=== PATIENT | female | born 1985 | race African-American/Black ===

== ENCOUNTER 2016-10-03 11:22 | Inpatient (IN) | payer OTHER ==
[2016-10-03 12:23] VITALS: BMI 29.4
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
[2016-10-03] MEDS ORDERED: guaiFENesin/D-METHORPHAN HB 10 ML UNIT-DOSE CUPS PO PRN (13:45)
[2016-10-03] MEDS ORDERED: MENTHOL/PHENOL 1 EACH UD MM PRN (13:45)
[2016-10-03] MEDS ORDERED: MAGNESIUM CITRATE 300 ML BOTTLE PO PRN (13:45)
[2016-10-03] MEDS ORDERED: MAG HYDROX/AL HYDROX/SIMETH 30 ML UNIT-DOSE CUP PO PRN (13:45)
[2016-10-03] MEDS ORDERED: MAGNESIUM HYDROX 2400MG/30ML ORAL SUSPENSION 30 ML CUP PO PRN (13:45)
[2016-10-03] MEDS ORDERED: ACETAMINOPHEN 325 MG TABLET (FP) PO PRN (13:45)
[2016-10-03] MEDS ORDERED: chlordiazePOXIDE HCL 25 MG CAPSULE PO PRN (13:45)
[2016-10-03] MEDS ORDERED: LOPERAMIDE HCL 2 MG CAPSULE PO PRN (13:45)
[2016-10-03] MEDS ORDERED: IBUPROFEN 400 MG TABLET (FP) PO PRN (13:45)
[2016-10-03] MEDS ORDERED: hydrOXYzine PAMOATE 50 MG CAPSULE (FP) PO PRN (13:45)
[2016-10-03] MEDS ORDERED: P-EPHED 60MG/TRIPROLIDI 2.5MG TABLET PO PRN (13:45)
[2016-10-03] MEDS ORDERED: ALBUTEROL SO4 6.7 GM HFA INHALER IH PRN (13:47)
[2016-10-03] MEDS ORDERED: chlordiazePOXIDE HCL 25 MG CAPSULE PO ONE (14:47)
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
[2016-10-03] MEDS: chlordiazePOXIDE HCL 25 MG CAPSULE PO SCH ×2 (17:25→22:27)
[2016-10-03 21:49] LABS: URINE APPEARANCE CLEAR; URINE BILIRUBIN NEGATIVE (NEGATIVE); URINE BLOOD 1+ (NEGATIVE); URINE COLOR YELLOW; URINE GLUCOSE (UA) NEGATIVE (NEGATIVE); URINE KETONE 2+ (NEGATIVE); URINE LEUK ESTERASE NEGATIVE (NEGATIVE); URINE NITRITE NEGATIVE (NEGATIVE); URINE PROTEIN 1+ (NEGATIVE); URINE UROBILINOGEN NEGATIVE E.U./dl (0.2-1.0)
[2016-10-03 21:54] LABS: URINE MUCUS MANY; URINE RBC 58 /hpf (0-3); URINE WBC 2 /hpf (3-5)
[2016-10-03] MEDS: THIAMINE HCL 100 MG TABLET (FP) PO SCH (22:27)
[2016-10-03] MEDS: QUEtiapine FUMARATE 50 MG TABLET PO SCH (22:27)
[2016-10-04] MEDS: chlordiazePOXIDE HCL 25 MG CAPSULE PO SCH ×4 (05:42→22:26)
[2016-10-04] MEDS: SERTRALINE HCL 50 MG TABLET (FP) PO SCH (10:30)
[2016-10-04] MEDS: PRENATAL VITAMINS W/ FOLIC ACID TABLET (FP) PO SCH (10:30)
[2016-10-04 11:22] LABS: ALBUMIN 3.6 g/dl (3.4-5.0); ANION GAP 11 (8-16); BILIRUBIN,TOTAL 0.3 mg/dL (0.2-1.0); CALCIUM 9.2 mg/dL (8.5-10.1); CO2 26 mmol/L (21-32); CREATININE 0.6 mg/dL (0.55-1.02); GLUCOSE,RANDOM 97 mg/dL (74-106); MCH 30.3 pg (25.7-33.7); MEAN CELL VOLUME 91.7 fl (80-96); MEAN PLT VOLUME 8.1 fl (7.5-11.1); PLATELET COUNT 250 K/MM3 (134-434); SGOT/AST 21 U/L (15-37); SGPT/ALT 21 U/L (12-78); WHITE BLOOD COUNT 5.3 K/mm3 (4.0-10.0)
[2016-10-04 11:23] LABS: ALK PHOS 62 U/L (45-117)
--- NOTE | 2016-10-04 12:05 | PN ---
[facility] CIWA - CIWA Score Nausea/Vomitin Muscle Tremors: 3 Anxiety: 3 Agitation: 2 Paroxysmal Sweats: 1-Minimal Palms Moist Orientation: 0-Oriented Tacttile Disturbances: 1-Very Mild Itch/Numbness Auditory Disturbances: 1-Very Mild Visual Disturbances: 1-Very Mild Sensitivity Headache: 2-Mild CIWA-Ar Total Score: 17 BHS Progress Note (SOAP) Subjective: ALERT,IRRITABLE,ANXIOUS,INTERRUPTED SLEEP,TREMOR Objective: 10/04/16 12:02 Vital Signs Temperature 96.9 F L 10/04/16 10:24 Pulse Rate 80 10/04/16 10:24 Respiratory Rate 20 10/04/16 10:24 Blood Pressure 115/76 10/04/16 10:24 O2 Sat by Pulse Oximetry (%) EKG NSR WITH SINUS ARRHYTHMIA NORMAL ECG Laboratory Last Values WBC 5.3 K/mm3 (4.0-10.0) 10/04/16 08:00 RBC 3.92 M/mm3 (3.60-5.2) 10/04/16 08:00 Hgb 11.9 GM/dL (10.7-15.3) 10/04/16 08:00 Hct 36.0 % (32.4-45.2) 10/04/16 08:00 MCV 91.7 fl (80-96) 10/04/16 08:00 MCHC 33.0 g/dl (32.0-36.0) 10/04/16 08:00 RDW 14.0 % (11.6-15.6) 10/04/16 08:00 Plt Count 250 K/MM3 (134-434) 10/04/16 08:00 MPV 8.1 fl (7.5-11.1) 10/04/16 08:00 Sodium 141 mmol/L (136-145) 10/04/16 08:00 Potassium 4.3 mmol/L (3.5-5.1) 10/04/16 08:00 Chloride 104 mmol/L (98-107) 10/04/16 08:00 Carbon Dioxide 26 mmol/L (21-32) 10/04/16 08:00 Anion Gap 11 (8-16) 10/04/16 08:00 BUN 10 mg/dL (7-18) 10/04/16 08:00 Creatinine 0.6 mg/dL (0.55-1.02) 10/04/16 08:00 Creat Clearance w eGFR > 60 (>60) 10/04/16 08:00 Random Glucose 97 mg/dL (74-106) 10/04/16 08:00 Calcium 9.2 mg/dL (8.5-10.1) 10/04/16 08:00 Total Bilirubin 0.3 mg/dL (0.2-1.0) 10/04/16 08:00 AST 21 U/L (15-37) 10/04/16 08:00 ALT 21 U/L (12-78) 10/04/16 08:00 Alkaline Phosphatase 62 U/L (45-117) 10/04/16 08:00 Total Protein 7.0 g/dl (6.4-8.2) 10/04/16 08:00 Albumin 3.6 g/dl (3.4-5.0) 10/04/16 08:00 Urine Color Yellow 10/03/16 21:00 Urine Appearance Clear 10/03/16 21:00 Urine pH 5.0 (5.0-8.0) 10/03/16 21:00 Ur Specific [place] 1.030 (1.001-1.035) 10/03/16 21:00 Urine Protein 1+ (NEGATIVE) H 10/03/16 21:00 Urine Glucose (UA) Negative (NEGATIVE) 10/03/16 21:00 Urine Ketones 2+ (NEGATIVE) H 10/03/16 21:00 Urine Blood 1+ (NEGATIVE) H 10/03/16 21:00 Urine Nitrite Negative (NEGATIVE) 10/03/16 21:00 Urine Bilirubin Negative (NEGATIVE) 10/03/16 21:00 Urine Urobilinogen Negative E.U./dl (0.2-1.0) 10/03/16 21:00 Ur Leukocyte Esterase Negative (NEGATIVE) 10/03/16 21:00 Urine RBC 58 /hpf (0-3) 10/03/16 21:00 Urine WBC 2 /hpf (3-5) 10/03/16 21:00 Ur Epithelial Cells Many /hpf (FEW) 10/03/16 21:00 Urine Mucus Many 10/03/16 21:00 10/04/16 12:04 LABS PENDING Assessment: 10/04/16 12:04 WITHDRAWAL SYMPTOM 10/04/16 12:04 Plan: CONTINUE DETOX,REPEAT UA
[2016-10-04] MEDS: THIAMINE HCL 100 MG TABLET (FP) PO SCH (22:26)
[2016-10-04] MEDS: diphenhydrAMINE HCL 50 MG CAPSULE PO PRN (22:26)
[2016-10-04] MEDS: QUEtiapine FUMARATE 50 MG TABLET PO SCH (22:26)
[2016-10-05 00:18] LABS: URINE APPEARANCE CLEAR; URINE BILIRUBIN NEGATIVE (NEGATIVE); URINE BLOOD NEGATIVE (NEGATIVE); URINE COLOR STRAW; URINE GLUCOSE (UA) 1+ (NEGATIVE); URINE KETONE NEGATIVE (NEGATIVE); URINE LEUK ESTERASE NEGATIVE (NEGATIVE); URINE NITRITE NEGATIVE (NEGATIVE); URINE PROTEIN NEGATIVE (NEGATIVE); URINE UROBILINOGEN NEGATIVE E.U./dl (0.2-1.0)
[2016-10-05] MEDS: chlordiazePOXIDE HCL 25 MG CAPSULE PO SCH ×2 (05:32→10:09)
[2016-10-05] MEDS: PRENATAL VITAMINS W/ FOLIC ACID TABLET (FP) PO SCH (10:09)
[2016-10-05] MEDS: SERTRALINE HCL 50 MG TABLET (FP) PO SCH (10:09)
--- NOTE | 2016-10-05 12:34 | PN ---
[facility] CIWA - CIWA Score Nausea/Vomitin Muscle Tremors: 3 Anxiety: 3 Agitation: 2 Paroxysmal Sweats: 1-Minimal Palms Moist Orientation: 0-Oriented Tacttile Disturbances: 1-Very Mild Itch/Numbness Auditory Disturbances: 1-Very Mild Visual Disturbances: 1-Very Mild Sensitivity Headache: 2-Mild CIWA-Ar Total Score: 17 BHS Progress Note (SOAP) Subjective: ALERT,IRRITABLE,ANXIOUS,INTERRUPTED SLEEP,TREMOR Objective: 10/05/16 12:33 Vital Signs Temperature 98.1 F 10/05/16 09:53 Pulse Rate 99 H 10/05/16 09:53 Respiratory Rate 20 10/05/16 09:53 Blood Pressure 114/69 10/05/16 09:53 O2 Sat by Pulse Oximetry (%) Laboratory Last Values WBC 5.3 K/mm3 (4.0-10.0) 10/04/16 08:00 RBC 3.92 M/mm3 (3.60-5.2) 10/04/16 08:00 Hgb 11.9 GM/dL (10.7-15.3) 10/04/16 08:00 Hct 36.0 % (32.4-45.2) 10/04/16 08:00 MCV 91.7 fl (80-96) 10/04/16 08:00 MCHC 33.0 g/dl (32.0-36.0) 10/04/16 08:00 RDW 14.0 % (11.6-15.6) 10/04/16 08:00 Plt Count 250 K/MM3 (134-434) 10/04/16 08:00 MPV 8.1 fl (7.5-11.1) 10/04/16 08:00 Sodium 141 mmol/L (136-145) 10/04/16 08:00 Potassium 4.3 mmol/L (3.5-5.1) 10/04/16 08:00 Chloride 104 mmol/L (98-107) 10/04/16 08:00 Carbon Dioxide 26 mmol/L (21-32) 10/04/16 08:00 Anion Gap 11 (8-16) 10/04/16 08:00 BUN 10 mg/dL (7-18) 10/04/16 08:00 Creatinine 0.6 mg/dL (0.55-1.02) 10/04/16 08:00 Creat Clearance w eGFR > 60 (>60) 10/04/16 08:00 Random Glucose 97 mg/dL (74-106) 10/04/16 08:00 Calcium 9.2 mg/dL (8.5-10.1) 10/04/16 08:00 Total Bilirubin 0.3 mg/dL (0.2-1.0) 10/04/16 08:00 AST 21 U/L (15-37) 10/04/16 08:00 ALT 21 U/L (12-78) 10/04/16 08:00 Alkaline Phosphatase 62 U/L (45-117) 10/04/16 08:00 Total Protein 7.0 g/dl (6.4-8.2) 10/04/16 08:00 Albumin 3.6 g/dl (3.4-5.0) 10/04/16 08:00 Urine Color Straw 10/04/16 23:58 Urine Appearance Clear 10/04/16 23:58 Urine pH 6.0 (5.0-8.0) 10/04/16 23:58 Ur Specific [place] 1.015 (1.001-1.035) 10/04/16 23:58 Urine Protein Negative (NEGATIVE) 10/04/16 23:58 Urine Glucose (UA) 1+ (NEGATIVE) H 10/04/16 23:58 Urine Ketones Negative (NEGATIVE) 10/04/16 23:58 Urine Blood Negative (NEGATIVE) 10/04/16 23:58 Urine Nitrite Negative (NEGATIVE) 10/04/16 23:58 Urine Bilirubin Negative (NEGATIVE) 10/04/16 23:58 Urine Urobilinogen Negative E.U./dl (0.2-1.0) 10/04/16 23:58 Ur Leukocyte Esterase Negative (NEGATIVE) 10/04/16 23:58 Urine RBC 58 /hpf (0-3) 10/03/16 21:00 Urine WBC 2 /hpf (3-5) 10/03/16 21:00 Ur Epithelial Cells Many /hpf (FEW) 10/03/16 21:00 Urine Mucus Many 10/03/16 21:00 RPR Titer Nonreactive (NONREACTIVE) 10/04/16 08:00 Assessment: 10/05/16 12:34 WITHDRAWAL SYMPTOM 10/05/16 12:35 Laboratory Results - last 24 hr 10/04/16 10/04/16 08:00 23:58 Urine Color Straw Urine Appearance Clear Urine pH 6.0 Ur Specific [place] 1.015 Urine Protein Negative Urine Glucose (UA) 1+ H Urine Ketones Negative Urine Blood Negative Urine Nitrite Negative Urine Bilirubin Negative Urine Urobilinogen Negative Ur Leukocyte Esterase Negative RPR Titer Nonreactive Plan: CONTINUE DETOX,FLUID ENCOURAGEMENT
[2016-10-05] MEDS: chlordiazePOXIDE 5 MG CAPSULE PO SCH ×2 (18:10→22:15)
[2016-10-05] MEDS: QUEtiapine FUMARATE 50 MG TABLET PO SCH (22:15)
[2016-10-05] MEDS: THIAMINE HCL 100 MG TABLET (FP) PO SCH (22:15)
[2016-10-05] MEDS: diphenhydrAMINE HCL 50 MG CAPSULE PO PRN (22:16)
[2016-10-06] MEDS: chlordiazePOXIDE 5 MG CAPSULE PO SCH ×2 (05:47→10:36)
[2016-10-06] MEDS: PRENATAL VITAMINS W/ FOLIC ACID TABLET (FP) PO SCH (10:36)
[2016-10-06] MEDS: SERTRALINE HCL 50 MG TABLET (FP) PO SCH (10:37)
--- NOTE | 2016-10-06 11:16 | PN ---
BHS Progress Note (SOAP) Subjective: interrupted sleep, sweats Objective: 10/06/16 11:14 Vital Signs Temperature 97 F L 10/06/16 10:15 Pulse Rate 79 10/06/16 10:15 Respiratory Rate 18 10/06/16 10:15 Blood Pressure 119/82 10/06/16 10:15 O2 Sat by Pulse Oximetry (%) Laboratory Tests 10/03/16 10/04/16 10/04/16 21:00 08:00 08:00 WBC 5.3 RBC 3.92 Hgb 11.9 Hct 36.0 MCV 91.7 MCHC 33.0 RDW 14.0 Plt Count 250 MPV 8.1 Sodium 141 Potassium 4.3 Chloride 104 Carbon Dioxide 26 Anion Gap 11 BUN 10 Creatinine 0.6 Creat Clearance w eGFR > 60 Random Glucose 97 Calcium 9.2 Total Bilirubin 0.3 AST 21 ALT 21 Alkaline Phosphatase 62 Total Protein 7.0 Albumin 3.6 Urine Color Yellow Urine Appearance Clear Urine pH 5.0 Ur Specific [place] 1.030 Urine Protein 1+ H Urine Glucose (UA) Negative Urine Ketones 2+ H Urine Blood 1+ H Urine Nitrite Negative Urine Bilirubin Negative Urine Urobilinogen Negative Ur Leukocyte Esterase Negative Urine RBC 58 Urine WBC 2 Ur Epithelial Cells Many Urine Mucus Many RPR Titer 10/04/16 10/04/16 08:00 23:58 WBC RBC Hgb Hct MCV MCHC RDW Plt Count MPV Sodium Potassium Chloride Carbon Dioxide Anion Gap BUN Creatinine Creat Clearance w eGFR Random Glucose Calcium Total Bilirubin AST ALT Alkaline Phosphatase Total Protein Albumin Urine Color Straw Urine Appearance Clear Urine pH 6.0 Ur Specific [place] 1.015 Urine Protein Negative Urine Glucose (UA) 1+ H Urine Ketones Negative Urine Blood Negative Urine Nitrite Negative Urine Bilirubin Negative Urine Urobilinogen Negative Ur Leukocyte Esterase Negative Urine RBC Urine WBC Ur Epithelial Cells Urine Mucus RPR Titer Nonreactive pt aox3 in nad ambulating Assessment: 10/06/16 11:15 withdrawal sx;s Plan: cont. detox increase fluids d/c in am
--- NOTE | 2016-10-06 11:32 | EKG ---
Test Reason : Blood Pressure : / mmHG Vent. Rate : 087 BPM Atrial Rate : 087 BPM P-R Int : 148 ms QRS Dur : 086 ms QT Int : 360 ms P-R-T Axes : 040 071 035 degrees QTc Int : 433 ms NORMAL SINUS RHYTHM WITH SINUS ARRHYTHMIA NORMAL ECG NO PREVIOUS ECGS AVAILABLE Confirmed by RIKY PILLAI MD ([id number]) on 10/06/2016 11:32:12 AM Referred By: Confirmed By:RIKY PILLAI MD
[2016-10-06] MEDS: chlordiazePOXIDE HCL 10 MG CAPSULE PO SCH ×2 (17:32→22:03)
[2016-10-06] MEDS: diphenhydrAMINE HCL 50 MG CAPSULE PO PRN (22:02)
[2016-10-06] MEDS: QUEtiapine FUMARATE 50 MG TABLET PO SCH (22:03)
[2016-10-06] MEDS: THIAMINE HCL 100 MG TABLET (FP) PO SCH (22:03)
[2016-10-07] MEDS: chlordiazePOXIDE HCL 10 MG CAPSULE PO SCH ×2 (05:51→10:09)
--- NOTE | 2016-10-07 08:59 | DS ---
[facility] Detox Discharge Summary Admission Date: 10/03/16 Discharge Date: 10/07/16 - History Present History: Alcohol Dependence - Physical Exam Results Vital Signs: Vital Signs Temperature 98.1 F 10/07/16 06:16 Pulse Rate 80 10/07/16 06:16 Respiratory Rate 18 10/07/16 06:16 Blood Pressure 111/58 10/07/16 06:16 O2 Sat by Pulse Oximetry (%) - Treatment Hospital Course: Detox Protocol Followed, Detoxed Safely, Responded well, Discharged Condition Good, Rehab Referral Accepted - Medication Discharge Medications: Ambulatory Orders Albuterol Sulfate Inhaler - [Ventolin Hfa Inhaler -] 2 inh PO Q4H PRN 10/03/16 Quetiapine Fumarate [Seroquel -] 50 mg PO HS #30 tablet 10/03/16 Sertraline HCl [Zoloft -] 50 mg PO DAILY #30 tablet 10/03/16 - Diagnosis (1) Alcohol dependence with uncomplicated withdrawal Current Visit: Yes Status: Chronic (2) Depression Current Visit: Yes Status: Chronic (3) Asthma Current Visit: Yes Status: Chronic Qualifiers: Asthma severity: mild intermittent Asthma complication type: uncomplicated Qualified Code(s): J45.20 - Mild intermittent asthma, uncomplicated - AMA Did Patient Leave Against Medical Advice: No
[2016-10-07 10:07] VITALS: BP 101/67; PULSE 83; TEMP 98.2
[2016-10-07] MEDS: PRENATAL VITAMINS W/ FOLIC ACID TABLET (FP) PO SCH (10:09)
[2016-10-07] MEDS: SERTRALINE HCL 50 MG TABLET (FP) PO SCH (10:09)
== END 2016-10-07 12:50 | disposition home or self-care (01) | DRG 775 ==
LOC: YASAS 11:22 → Y6N 14:20
PROVIDERS: ADMIT Internal Medicine; ATTEND Internal Medicine
PROC: HZ2ZZZZ Detoxification Services for Substance Abuse Treatment (ICD-10-PCS; principal; 2016-10-07)
DX: F10.230 Alcohol dependence with withdrawal, uncomplicated (principal); F10.24 Alcohol dependence with alcohol-induced mood disorder; F32.9 Major depressive disorder, single episode, unspecified; F43.23 Adjustment disorder with mixed anxiety and depressed mood
CPT/HCPCS: 36415; 80053; 81003; 81015; 85027; 86593; 93005; 93010

== ENCOUNTER 2016-10-07 13:04 | Inpatient (IN) | payer OTHER ==
[2016-10-07] MEDS ORDERED: LOPERAMIDE HCL 2 MG CAPSULE PO PRN (14:26)
[2016-10-07] MEDS ORDERED: IBUPROFEN 400 MG TABLET (FP) PO PRN (14:26)
[2016-10-07] MEDS ORDERED: MAGNESIUM HYDROX 2400MG/30ML ORAL SUSPENSION 30 ML CUP PO PRN (14:26)
[2016-10-07] MEDS ORDERED: guaiFENesin/D-METHORPHAN HB 10 ML UNIT-DOSE CUPS PO PRN (14:26)
[2016-10-07] MEDS ORDERED: MAGNESIUM CITRATE 300 ML BOTTLE PO PRN (14:26)
[2016-10-07] MEDS ORDERED: ACETAMINOPHEN 325 MG TABLET (FP) PO PRN (14:26)
[2016-10-07] MEDS ORDERED: P-EPHED 60MG/TRIPROLIDI 2.5MG TABLET PO PRN (14:26)
[2016-10-07] MEDS ORDERED: MENTHOL/PHENOL 1 EACH UD MM PRN (14:26)
[2016-10-07] MEDS ORDERED: MAG HYDROX/AL HYDROX/SIMETH 30 ML UNIT-DOSE CUP PO PRN (14:26)
[2016-10-07 14:27] VITALS: BMI 31.1
[2016-10-07] MEDS ORDERED: ALBUTEROL SO4 6.7 GM HFA INHALER IH PRN (14:27)
--- NOTE | 2016-10-07 14:29 | HP ---
[facility] Rehab Assess/Revision - Admission History Admitted to Rehab from: [facility] Date of Admission to Rehab: 10/07/16 - Vital signs Vital Signs: Vital Signs Period Temp Pulse Resp BP Sys/Moreno Pulse Ox Last 24 Hr 98.4 F-98.4 F 96-96 18-18 107-107/69-69 - Findings Detox History & Physical reviewed: Yes Concur with findings: Yes
[2016-10-07] MEDS: THIAMINE HCL 100 MG TABLET (FP) PO SCH (21:32)
[2016-10-07] MEDS: QUEtiapine FUMARATE 50 MG TABLET PO SCH (21:32)
[2016-10-07] MEDS: diphenhydrAMINE HCL 50 MG CAPSULE PO PRN (21:33)
[2016-10-08] MEDS ORDERED: SERTRALINE HCL 50 MG TABLET (FP) PO SCH (10:00)
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
[2016-10-08] MEDS: PRENATAL VITAMINS W/ FOLIC ACID TABLET (FP) PO SCH (11:01)
[2016-10-08] MEDS: QUEtiapine FUMARATE 50 MG TABLET PO SCH (21:31)
[2016-10-08] MEDS: THIAMINE HCL 100 MG TABLET (FP) PO SCH (21:31)
[2016-10-08] MEDS: diphenhydrAMINE HCL 50 MG CAPSULE PO PRN (21:31)
[2016-10-09] MEDS: PRENATAL VITAMINS W/ FOLIC ACID TABLET (FP) PO SCH (10:30)
[2016-10-09] MEDS: SERTRALINE HCL 25 MG TABLET (FP) PO SCH (10:31)
[2016-10-09] MEDS: diphenhydrAMINE HCL 50 MG CAPSULE PO PRN ×2 (21:31→22:52)
[2016-10-09] MEDS: QUEtiapine FUMARATE 50 MG TABLET PO SCH (21:31)
[2016-10-09] MEDS: THIAMINE HCL 100 MG TABLET (FP) PO SCH (21:31)
[2016-10-10] MEDS: SERTRALINE HCL 25 MG TABLET (FP) PO SCH (10:40)
[2016-10-10] MEDS: PRENATAL VITAMINS W/ FOLIC ACID TABLET (FP) PO SCH (10:40)
[2016-10-10] MEDS ORDERED: hydrOXYzine PAMOATE 25 MG CAPSULE (FP) PO PRN (15:40)
--- NOTE | 2016-10-10 15:41 | PN ---
BHS Progress Note Note: called from 3E due to pt's anxiety, vistaril 25 mg po q 4hrs ordered.
[2016-10-10] MEDS: diphenhydrAMINE HCL 50 MG CAPSULE PO PRN (21:37)
[2016-10-10] MEDS: QUEtiapine FUMARATE 50 MG TABLET PO SCH (21:37)
[2016-10-10] MEDS: THIAMINE HCL 100 MG TABLET (FP) PO SCH (21:37)
[2016-10-11] MEDS: SERTRALINE HCL 25 MG TABLET (FP) PO SCH (10:02)
[2016-10-11] MEDS: PRENATAL VITAMINS W/ FOLIC ACID TABLET (FP) PO SCH (10:02)
[2016-10-11] MEDS: THIAMINE HCL 100 MG TABLET (FP) PO SCH (21:19)
[2016-10-11] MEDS: QUEtiapine FUMARATE 50 MG TABLET PO SCH (21:19)
[2016-10-11] MEDS: diphenhydrAMINE HCL 50 MG CAPSULE PO PRN (21:20)
[2016-10-12] MEDS ORDERED: PT OWN MED DRAWER 7, Y5N ONE (08:31)
[2016-10-12] MEDS: SERTRALINE HCL 25 MG TABLET (FP) PO SCH (10:07)
[2016-10-12] MEDS: PRENATAL VITAMINS W/ FOLIC ACID TABLET (FP) PO SCH (10:07)
[2016-10-12] MEDS: diphenhydrAMINE HCL 50 MG CAPSULE PO PRN ×2 (21:22→23:01)
[2016-10-12] MEDS: THIAMINE HCL 100 MG TABLET (FP) PO SCH (21:22)
[2016-10-12] MEDS: QUEtiapine FUMARATE 50 MG TABLET PO SCH (21:22)
[2016-10-13] MEDS: SERTRALINE HCL 25 MG TABLET (FP) PO SCH (10:06)
[2016-10-13] MEDS: PRENATAL VITAMINS W/ FOLIC ACID TABLET (FP) PO SCH (10:06)
[2016-10-13] MEDS: QUEtiapine FUMARATE 50 MG TABLET PO SCH (21:28)
[2016-10-13] MEDS: THIAMINE HCL 100 MG TABLET (FP) PO SCH (21:28)
[2016-10-13] MEDS: diphenhydrAMINE HCL 50 MG CAPSULE PO PRN (21:29)
[2016-10-14] MEDS: PRENATAL VITAMINS W/ FOLIC ACID TABLET (FP) PO SCH (10:19)
[2016-10-14] MEDS: SERTRALINE HCL 25 MG TABLET (FP) PO SCH (10:20)
--- NOTE | 2016-10-14 16:07 | HP ---
[facility] Rehab Assess/Revision - Admission History Admitted to Rehab from: [facility] Date of Admission to Rehab: 10/14/16 - Vital signs Vital Signs: Vital Signs Period Temp Pulse Resp BP Sys/Moreno Pulse Ox Last 24 Hr 98.2 F 73 17-18 109/74 - Findings Detox History & Physical reviewed: Yes Concur with findings: Yes Comments/Additional Findings: transferred from detox to rehab admission as per protocol
[2016-10-14] MEDS: THIAMINE HCL 100 MG TABLET (FP) PO SCH (21:18)
[2016-10-14] MEDS: QUEtiapine FUMARATE 50 MG TABLET PO SCH (21:18)
[2016-10-14] MEDS: diphenhydrAMINE HCL 50 MG CAPSULE PO PRN (21:19)
[2016-10-15] MEDS: PRENATAL VITAMINS W/ FOLIC ACID TABLET (FP) PO SCH (10:25)
[2016-10-15] MEDS: SERTRALINE HCL 25 MG TABLET (FP) PO SCH (10:26)
[2016-10-15] MEDS: THIAMINE HCL 100 MG TABLET (FP) PO SCH (21:41)
[2016-10-15] MEDS: QUEtiapine FUMARATE 50 MG TABLET PO SCH (21:41)
[2016-10-15] MEDS: diphenhydrAMINE HCL 50 MG CAPSULE PO PRN (21:41)
[2016-10-16] MEDS: PRENATAL VITAMINS W/ FOLIC ACID TABLET (FP) PO SCH (10:24)
[2016-10-16] MEDS: SERTRALINE HCL 50 MG TABLET (FP) PO SCH (10:24)
[2016-10-16] MEDS ORDERED: ALBUTEROL SO4 2.5/IPRATROPIUM 0.5 INH SOL 3 ML VIAL.NEB. NEB PRN (10:53)
[2016-10-16] MEDS: THIAMINE HCL 100 MG TABLET (FP) PO SCH (21:12)
[2016-10-16] MEDS: QUEtiapine FUMARATE 50 MG TABLET PO SCH (21:12)
[2016-10-16] MEDS: diphenhydrAMINE HCL 50 MG CAPSULE PO PRN (21:12)
[2016-10-17] MEDS: PRENATAL VITAMINS W/ FOLIC ACID TABLET (FP) PO SCH (10:43)
[2016-10-17] MEDS: SERTRALINE HCL 50 MG TABLET (FP) PO SCH (10:43)
[2016-10-17] MEDS: diphenhydrAMINE HCL 50 MG CAPSULE PO PRN (21:27)
[2016-10-17] MEDS: THIAMINE HCL 100 MG TABLET (FP) PO SCH (21:27)
[2016-10-17] MEDS: QUEtiapine FUMARATE 50 MG TABLET PO SCH (21:27)
[2016-10-18] MEDS: SERTRALINE HCL 50 MG TABLET (FP) PO SCH (10:15)
[2016-10-18] MEDS: PRENATAL VITAMINS W/ FOLIC ACID TABLET (FP) PO SCH (10:15)
[2016-10-18] MEDS: THIAMINE HCL 100 MG TABLET (FP) PO SCH (21:21)
[2016-10-18] MEDS: QUEtiapine FUMARATE 50 MG TABLET PO SCH (21:21)
[2016-10-18] MEDS: diphenhydrAMINE HCL 50 MG CAPSULE PO PRN (21:22)
[2016-10-19] MEDS: PRENATAL VITAMINS W/ FOLIC ACID TABLET (FP) PO SCH (09:57)
[2016-10-19] MEDS: SERTRALINE HCL 50 MG TABLET (FP) PO SCH (09:57)
[2016-10-19] MEDS: QUEtiapine FUMARATE 50 MG TABLET PO SCH (21:19)
[2016-10-19] MEDS: THIAMINE HCL 100 MG TABLET (FP) PO SCH (21:19)
[2016-10-19] MEDS: diphenhydrAMINE HCL 50 MG CAPSULE PO PRN (21:19)
[2016-10-20] MEDS: PRENATAL VITAMINS W/ FOLIC ACID TABLET (FP) PO SCH (10:00)
[2016-10-20] MEDS: SERTRALINE HCL 50 MG TABLET (FP) PO SCH (10:00)
[2016-10-20] MEDS: THIAMINE HCL 100 MG TABLET (FP) PO SCH (21:23)
[2016-10-20] MEDS: diphenhydrAMINE HCL 50 MG CAPSULE PO PRN (21:24)
[2016-10-20] MEDS: QUEtiapine FUMARATE 50 MG TABLET PO SCH (22:25)
[2016-10-21] MEDS: SERTRALINE HCL 50 MG TABLET (FP) PO SCH (09:50)
[2016-10-21] MEDS: PRENATAL VITAMINS W/ FOLIC ACID TABLET (FP) PO SCH (09:50)
[2016-10-21] MEDS: QUEtiapine FUMARATE 50 MG TABLET PO SCH (21:33)
[2016-10-21] MEDS: diphenhydrAMINE HCL 50 MG CAPSULE PO PRN (21:33)
[2016-10-21] MEDS: THIAMINE HCL 100 MG TABLET (FP) PO SCH (21:33)
[2016-10-22] MEDS: PRENATAL VITAMINS W/ FOLIC ACID TABLET (FP) PO SCH (09:58)
[2016-10-22] MEDS: SERTRALINE HCL 50 MG TABLET (FP) PO SCH (09:59)
[2016-10-22] MEDS: THIAMINE HCL 100 MG TABLET (FP) PO SCH (21:31)
[2016-10-22] MEDS: QUEtiapine FUMARATE 50 MG TABLET PO SCH (21:31)
[2016-10-22] MEDS: diphenhydrAMINE HCL 50 MG CAPSULE PO PRN (21:31)
[2016-10-23] MEDS: SERTRALINE HCL 50 MG TABLET (FP) PO SCH (10:14)
[2016-10-23] MEDS: PRENATAL VITAMINS W/ FOLIC ACID TABLET (FP) PO SCH (10:14)
[2016-10-23] MEDS: diphenhydrAMINE HCL 50 MG CAPSULE PO PRN (21:35)
[2016-10-23] MEDS: QUEtiapine FUMARATE 50 MG TABLET PO SCH (21:35)
[2016-10-23] MEDS: THIAMINE HCL 100 MG TABLET (FP) PO SCH (21:35)
[2016-10-24] MEDS: SERTRALINE HCL 50 MG TABLET (FP) PO SCH (10:12)
[2016-10-24] MEDS: PRENATAL VITAMINS W/ FOLIC ACID TABLET (FP) PO SCH (10:12)
[2016-10-24] MEDS: QUEtiapine FUMARATE 50 MG TABLET PO SCH (21:35)
[2016-10-24] MEDS: THIAMINE HCL 100 MG TABLET (FP) PO SCH (21:35)
[2016-10-24] MEDS: diphenhydrAMINE HCL 50 MG CAPSULE PO PRN (21:35)
[2016-10-25] MEDS: SERTRALINE HCL 50 MG TABLET (FP) PO SCH (10:08)
[2016-10-25] MEDS: PRENATAL VITAMINS W/ FOLIC ACID TABLET (FP) PO SCH (10:08)
[2016-10-25] MEDS: diphenhydrAMINE HCL 50 MG CAPSULE PO PRN (21:29)
[2016-10-25] MEDS: THIAMINE HCL 100 MG TABLET (FP) PO SCH (21:29)
[2016-10-25] MEDS: QUEtiapine FUMARATE 50 MG TABLET PO SCH (21:29)
[2016-10-26] MEDS: SERTRALINE HCL 50 MG TABLET (FP) PO SCH (10:17)
[2016-10-26] MEDS: PRENATAL VITAMINS W/ FOLIC ACID TABLET (FP) PO SCH (10:17)
[2016-10-26] MEDS: QUEtiapine FUMARATE 50 MG TABLET PO SCH (21:24)
[2016-10-26] MEDS: diphenhydrAMINE HCL 50 MG CAPSULE PO PRN (21:24)
[2016-10-26] MEDS: THIAMINE HCL 100 MG TABLET (FP) PO SCH (21:24)
[2016-10-27] MEDS: SERTRALINE HCL 50 MG TABLET (FP) PO SCH (10:09)
[2016-10-27] MEDS: PRENATAL VITAMINS W/ FOLIC ACID TABLET (FP) PO SCH (10:09)
[2016-10-27] MEDS: THIAMINE HCL 100 MG TABLET (FP) PO SCH (21:29)
[2016-10-27] MEDS: diphenhydrAMINE HCL 50 MG CAPSULE PO PRN (21:29)
[2016-10-27] MEDS: QUEtiapine FUMARATE 50 MG TABLET PO SCH (21:29)
[2016-10-28] MEDS: PRENATAL VITAMINS W/ FOLIC ACID TABLET (FP) PO SCH (10:09)
[2016-10-28] MEDS: SERTRALINE HCL 50 MG TABLET (FP) PO SCH (10:09)
[2016-10-28] MEDS: diphenhydrAMINE HCL 50 MG CAPSULE PO PRN (21:40)
[2016-10-28] MEDS: THIAMINE HCL 100 MG TABLET (FP) PO SCH (21:40)
[2016-10-28] MEDS: QUEtiapine FUMARATE 50 MG TABLET PO SCH (21:40)
[2016-10-29 07:37] VITALS: BP 128/86; PULSE 73; TEMP 98.5
--- NOTE | 2016-10-29 08:46 | PN ---
Psychiatric Progress Note Vital Signs: Vital Signs Period Temp Pulse Resp BP Sys/Moreno Pulse Ox Last 24 Hr 98.5 F 73 16-18 128/86 Date of Session: 10/29/16 Chief Complaint:: Discharge visit HPI: Patient addressed Alcohol dependence comorbid with Alcohol induced mood disorder. ROS: Significant for Bronchial asthma. Current Medications: Active Medications Generic Name Dose Route Start Last Admin Trade Name Freq PRN Reason Stop Dose Admin Acetaminophen 650 mg 10/07/16 14:26 Tylenol - PO Q4H PRN FEVER OR PAIN Al Hydroxide/Mg Hydroxide 30 ml 10/07/16 14:26 10/26/16 13:22 Mylanta Oral Suspension - PO 30 ml Q6H PRN Administration DYSPEPSIA Albuterol Sulfate 2 puff 10/07/16 14:27 10/16/16 09:09 Ventolin Hfa Inhaler - IH 2 inhaler Q4H PRN Administration ASTHMA Diphenhydramine HCl 100 mg 10/13/16 16:56 10/28/16 21:40 Benadryl - PO 100 mg HS PRN Administration INSOMNIA Eucalyptus/Menthol/Phenol/Sorbitol 1 each 10/07/16 14:26 Cepastat Lozenge - MM Q4H PRN SORE THROAT Guaifenesin 10 ml 10/07/16 14:26 Robitussin Dm - PO Q6H PRN COUGH Hydroxyzine Pamoate 25 mg 10/10/16 15:40 Vistaril - PO Q4H PRN ANXIETY Ibuprofen 400 mg 10/07/16 14:26 Motrin - PO Q6H PRN PAIN Loperamide HCl 4 mg 10/07/16 14:26 Imodium - PO Q6H PRN DIARRHEA Magnesium Hydroxide 30 ml 10/07/16 14:26 Milk Of Magnesia - PO DAILY PRN CONSTIPATION Multivit/Folic Acid/Iron 1 tab 10/08/16 10:00 10/28/16 10:09 Vitamins (Sjr) - PO 1 tab DAILY ANA Administration Pseudoephedrine/Triprolidine 1 combo 10/07/16 14:26 Actifed - PO TID PRN NASAL CONGESTION Quetiapine Fumarate 50 mg 10/07/16 22:00 10/28/16 21:40 Seroquel - PO 50 mg HS ANA Administration Sertraline HCl 100 mg 10/16/16 10:00 10/28/16 10:09 Zoloft - PO 100 mg DAILY ANA Administration Thiamine HCl 100 mg 10/07/16 22:00 10/28/16 21:40 Vitamin B1 - PO 100 mg HS ANA Administration Current Side Effect: No Lab tests ordered: No Lab tests reviewed: Yes Provider note:: Patient completed this program today.She has met her treatment goals and will continue to address her issues on outpatient basis at [facility] in [facility] [place].Patient continues to find that Seroquel 50 mg po hs and Zoloft 100 mg po daily help to reduce her anxiety,mood instability, sleeping difficulties.script for 30 days proivided. Therapy provided focusing on relapse prevention including coping skills,support system utilization to maintain recovery. Patient is staable for discharge today. Total face to face time:: 35 Psychiatric Treatment Plan - Problem List (1) Adjustment disorder with mixed anxiety and depressed mood Current Visit: Yes (2) Alcohol-induced mood disorder Current Visit: Yes (3) Asthma Current Visit: Yes Qualifiers: Asthma severity: mild intermittent Asthma complication type: uncomplicated Qualified Code(s): J45.20 - Mild intermittent asthma, uncomplicated (4) Alcohol dependence Current Visit: Yes
[2016-10-29] MEDS: SERTRALINE HCL 50 MG TABLET (FP) PO SCH (09:10)
[2016-10-29] MEDS: PRENATAL VITAMINS W/ FOLIC ACID TABLET (FP) PO SCH (09:10)
== END 2016-10-29 09:36 | disposition home or self-care (01) | DRG 772 ==
LOC: YASAS 13:04 → Y3E 13:05
PROVIDERS: ADMIT Psychiatry & Neurology Psychiatry; ATTEND Psychiatry & Neurology Psychiatry
PROC: HZ42ZZZ Group Counseling for Substance Abuse Treatment, Cognitive-Behavioral (ICD-10-PCS; principal; 2016-10-07)
DX: F10.24 Alcohol dependence with alcohol-induced mood disorder (principal); F43.23 Adjustment disorder with mixed anxiety and depressed mood; J45.20 Mild intermittent asthma, uncomplicated
CPT/HCPCS: 94640